=== PATIENT | male | born 1960 | race African-American/Black ===

== ENCOUNTER 2017-07-10 09:22 | Emergency (ER) | payer OTHER ==
[2017-07-10 09:33] VITALS: TEMP 97.6; BMI 28.2
[2017-07-10] MEDS ORDERED: KETOROLAC TROMETHAMINE 30 MG/1 ML VIAL IVPUSH ONE (09:39)
[2017-07-10] MEDS ORDERED: CYCLOBENZAPRINE HCL 10 MG TABLET (FP) ONE (09:40)
[2017-07-10] MEDS ORDERED: KETOROLAC TROMETHAMINE 30 MG/1 ML VIAL ONE (09:40)
[2017-07-10] MEDS ORDERED: ACETAMINOPHEN INJECTION 100 ML IVPB ONE (09:40)
[2017-07-10] MEDS ORDERED: CYCLOBENZAPRINE HCL 10 MG TABLET (FP) PO ONE (09:40)
[2017-07-10] MEDS ORDERED: ACETAMINOPHEN 1000 MG/100 ML VIAL (NON FORMULARY) IVPB ONE (09:42)
--- NOTE | 2017-07-10 09:49 | PDOC ---
History of Present Illness - History of Present Illness Initial Comments: 07/10/17 09:55 Patient is a 57 M, with PMHx of cervical stenosis with neck and shoulder surgery , diabetes, who presents today with lower back pain. Patient states that he was moving from a sitting to a standing position around 8:30 am and had a sudden onset of excruciating lower back pain. Patient also endorses numbness and tingling radiating down his left leg. Patient states that he normally experiences neuropathy in his hands. He denies nausea, vomiting diarrhea. He denies chest pain, SOB, headache, dizziness. He denies dysuria, or other urinary complaints. He denies lifting heavy objects. <Modesta Hauser - Last Filed: 07/10/17 11:37> - General History Source: Patient Exam Limitations: No Limitations <Valdez Hamilton - Last Filed: 07/10/17 12:24> - General Chief Complaint: Back Pain Stated Complaint: BACK PAIN Time Seen by Provider: 07/10/17 09:38 Past History <Modesta Hauser - Last Filed: 07/10/17 11:37> - Past Medical History COPD: No Diabetes: Yes (NIDDM) - Suicide/Smoking/Psychosocial Hx Smoking History: Never smoked Have you smoked in the past 12 months: No Number of Cigarettes Smoked Daily: 0 Hx Alcohol Use: No Drug/Substance Use Hx: No <Valdez Hamilton - Last Filed: 07/10/17 12:24> - Past Medical History Allergies/Adverse Reactions: Allergies Allergy/AdvReac Type Severity Reaction Status Date / Time No Known Allergies Allergy Verified 07/10/17 09:24 Home Medications: Ambulatory Orders metFORMIN HCL [Glucophage -] 1,000 mg PO BID 04/09/15 Acetaminophen [Tylenol] 650 mg PO Q4H PRN #20 tablet 07/10/17 Cyclobenzaprine HCl [Flexeril 10 mg] 10 mg PO Q8H PRN #21 tablet 07/10/17 Glyburide 0 mg PO BID 07/10/17 Naproxen 500 mg PO BID PRN #20 tablet. 07/10/17 Prednisone [Deltasone] 40 mg PO DAILY #6 tablet 07/10/17 Sitagliptin Phosphate [Januvia] 100 mg PO DAILY 07/10/17 Review of Systems - Review of Systems Comments:: 07/10/17 09:50 GENERAL/CONSTITUTIONAL: No fever or chills. No weakness. HEAD, EYES, EARS, NOSE AND THROAT: No change in vision. No ear pain or discharge. No sore throat. CARDIOVASCULAR: No chest pain or shortness of breath. RESPIRATORY: No cough, wheezing, or hemoptysis. GASTROINTESTINAL: No nausea, vomiting, diarrhea or constipation. GENITOURINARY: No dysuria, frequency, or change in urination. MUSCULOSKELETAL: No joint pain. No neck pain. +Back pain. SKIN: No rash NEUROLOGIC: No headache, vertigo, loss of consciousness. + Numbness and tingling down left leg. ENDOCRINE: No increased thirst. No abnormal weight change. HEMATOLOGIC/LYMPHATIC: No anemia, easy bleeding, or history of blood clots. ALLERGIC/IMMUNOLOGIC: No hives or skin allergy. <Modesta Hauser - Last Filed: 07/10/17 11:37> *Physical Exam - Vital Signs Last Vital Signs Temp Pulse Resp BP Pulse Ox 97.6 F 72 24 143/79 100 07/10/17 09:25 07/10/17 09:25 07/10/17 09:25 07/10/17 09:25 07/10/17 09:25 - Physical Exam Comments: 07/10/17 09:52 GENERAL: Awake, alert, and fully oriented, in no acute distress HEAD: No signs of trauma EYES: PERRLA, EOMI, sclera anicteric, conjunctiva clear NECK: Normal ROM, supple, no lymphadenopathy, JVD, or masses LUNGS: Breath sounds equal, clear to auscultation bilaterally. No wheezes, and no crackles HEART: Regular rate and rhythm, normal S1 and S2, no murmurs, rubs or gallops ABDOMEN: Soft, nontender, normoactive bowel sounds. No guarding, no rebound. No masses BACK: Tenderness to palpation of lumbar spine. No step-offs. EXTREMITIES: Unable to assess straight leg raise. Pain from all movement. no edema. No clubbing or cyanosis. No cords, erythema, or tenderness. Dorsiflexion of great toe b/l. Full strength. NEUROLOGICAL: Cranial nerves II through XII grossly intact. Normal speech. 2+ dp pulse bilaterally. Sensation intact throughout SKIN: Warm, Dry, normal turgor, no rashes or lesions noted. . <Modesta Hauser - Last Filed: 07/10/17 11:37> - Vital Signs Last Vital Signs Temp Pulse Resp BP Pulse Ox 97.6 F 72 24 143/79 100 07/10/17 09:25 07/10/17 09:25 07/10/17 09:25 07/10/17 09:25 07/10/17 09:25 <Valdez Hamilton - Last Filed: 07/10/17 12:24> ED Treatment Course - LABORATORY CBC & Chemistry Diagram: 07/10/17 09:45 07/10/17 09:45 - RADIOLOGY Radiograph Interpretation: 07/10/17 11:37 CT Lumbar Spine Findings: no evidence of compression fracture or listhesis Disc spaces preserved. No significant degenerative changes. No evidence of spinal stenosis. No evidence of focal disc protrusion No evidence of abdominal aortic aneurysm No evidence of renal calculus Impression: negative study Reported by: José Miguel Collins MD 07/10/17 1130 - Medications Given in the ED: ED Medications Discontinued Medications Generic Name Dose Route Start Last Admin Trade Name Luis Fernandoq PRN Reason Stop Dose Admin Acetaminophen 1,000 mg 07/10/17 09:42 07/10/17 09:50 Ofirmev Injection - IVPB 07/10/17 09:43 1,000 mg ONCE ONE Administration Cyclobenzaprine HCl 10 mg 07/10/17 09:40 07/10/17 09:50 Flexeril - PO 07/10/17 09:41 10 mg ONCE ONE Administration Ketorolac Tromethamine 30 mg 07/10/17 09:39 07/10/17 09:50 Toradol Injection - IVPUSH 07/10/17 09:40 30 mg ONCE ONE Administration <Modesta Hauser - Last Filed: 07/10/17 11:37> - LABORATORY CBC & Chemistry Diagram: 07/10/17 09:45 07/10/17 09:45 - RADIOLOGY Radiology Studies Ordered: Category Date Time Status LUMBAR SPINE CT W/O CONTRAST [CT] Stat CT Scan 07/10/17 09:42 Ordered <Valdez Hamilton - Last Filed: 07/10/17 12:24> Medical Decision Making - Medical Decision Making 07/10/17 09:45 A portion of this note was documented by scribe services under my direction. I have reviewed the details of the note, within reason, and agree with the documentation with the following case summary and management plan written by me. Patient treated in the ED. Nursing notes are reviewed and incorporated into the medical decision-making. Vital signs reviewed. Vital Signs Temp Pulse Resp BP Pulse Ox 97.6 F 72 24 143/79 100 07/10/17 09:25 18 09:25 07/10/17 09:25 07/10/17 09:25 07/10/17 09:25 57-year-old male with past medical history of diabetes, cervical spine stenosis presents with lower back pain since approximately 8:00 in the morning. The patient states that he woke up in his usual state of health. Denies lifting any heavy objects or pushing or pulling. While getting ready for christian, the patient started developed sudden onset of lower spinal pain radiating to the lower extremities. Denies any numbness, paresthesias, urinary bowel incontinence. The patient reported that the back pain was so severe that he fell to the ground. Denies head trauma or loss of consciousness. Patient reports that he has had chronic sciatica-like pain for several months. Typically radiates down to left leg with intermittent numbness and paresthesias. States that the quality of pain is similar but the intensity is worse. At this time, less suspicious for cord compression or cauda equina. However, I suspect the patient likely has severe sciatica. We'll attempt to control the pain and obtain a lumbar spine CT. Reassess. 07/10/17 12:18 CBC, BMP 07/10/17 09:45 07/10/17 09:45 CMP Sodium 140 mmol/L (136-145) 07/10/17 09:45 Potassium 4.2 mmol/L (3.5-5.1) 07/10/17 09:45 Chloride 106 mmol/L (98-107) 07/10/17 09:45 Carbon Dioxide 25 mmol/L (21-32) 07/10/17 09:45 Anion Gap 9 (8-16) 07/10/17 09:45 BUN 20 mg/dL (7-18) H 07/10/17 09:45 Creatinine 0.8 mg/dL (0.7-1.3) 07/10/17 09:45 Creat Clearance w eGFR > 60 (>60) 07/10/17 09:45 Random Glucose 79 mg/dL (74-106) 07/10/17 09:45 Calcium 9.2 mg/dL (8.5-10.1) 07/10/17 09:45 Total Bilirubin 0.7 mg/dL (0.2-1.0) 07/10/17 09:45 AST 25 U/L (15-37) 07/10/17 09:45 ALT 39 U/L (12-78) 07/10/17 09:45 Alkaline Phosphatase 68 U/L (45-117) 07/10/17 09:45 Total Protein 8.1 g/dl (6.4-8.2) 07/10/17 09:45 Albumin 4.6 g/dl (3.4-5.0) 07/10/17 09:45 CT scan of lumbar spine reviewed. No acute findings. After toradol, tylenol, flexeril, dexamethasone and lidoderm patch, the patient feels much better. Pt would like to go home. I advised the patient to return to the ER if he has any worsening symptoms. Pt will go home with hi . I discussed the physical exam findings, ancillary test results and final diagnoses with the patient. I answered all of the patient's questions. The patient was satisfied with the care received and felt comfortable with the discharge plan and treatment plan. The patient will call their primary care physician within 24 hours to arrange follow-up and will return to the Emergency Department with any new, persistant or worsening symptoms. <Valdez Hamilton - Last Filed: 07/10/17 12:24> *DC/Admit/Observation/Transfer - Attestations Scribe Attestion: 07/10/17 09:57 Documentation prepared by Modesta Hauser, acting as medical attendant for Valdez Hamilton MD, MD. <Modesta Hauser - Last Filed: 07/10/17 11:37> - Discharge Dispostion Admit: No <Valdez Hamilton - Last Filed: 07/10/17 12:24> Diagnosis at time of Disposition: Sciatica Qualifiers: Laterality: unspecified laterality Qualified Code(s): M54.30 - Sciatica, unspecified side - Discharge Dispostion Disposition: HOME Condition at time of disposition: Improved - Prescriptions Prescriptions: Acetaminophen [Tylenol] 650 mg PO Q4H PRN #20 tablet PRN Reason: Back Pain Cyclobenzaprine HCl [Flexeril 10 mg] 10 mg PO Q8H PRN #21 tablet PRN Reason: Back Spasm Naproxen 500 mg PO BID PRN #20 tablet. PRN Reason: Pain Prednisone [Deltasone] 40 mg PO DAILY #6 tablet - Referrals Referrals: Jo Enamorado MD [Primary Care Provider] - Rudolph Ruelas MD [Staff Physician] - - Patient Instructions Printed Discharge Instructions: DI for Sciatica Additional Instructions: Please continue taking the steroids. Start tomorrow. Take 500 mg naproxen every 12 hours and/or 650 mg tylenol every 4 hours as needed for pain. 10 mg flexeril every 8 hours as needed for muscle spasm. These medications may give you stomach upset, so you may take over the counter tums or take with food. It may take several days before your symptoms improve. Follow up with your doctor. If you start to notice severe numbness, weakness, difficulty controlling your bowels or urine, please return to the ER. - Post Discharge Activity
[2017-07-10 10:01] LABS: BASO % 0.7 % (0-2.0); EOS % 2.1 % (0-4.5); HEMATOCRIT 42.2 % (35.4-49); HEMOGLOBIN 14.2 GM/dL (11.7-16.9); LYMPH % 43.7 % (8-40); MCH 26.1 pg (25.7-33.7); MCHC 33.6 g/dl (32.0-35.9); MEAN CELL VOLUME 77.7 fl (80-96); MEAN PLT VOLUME 9.7 fl (7.5-11.1); NEUT % 48.5 % (42.8-82.8); PLATELET COUNT 221 K/MM3 (134-434); RBC 5.43 M/mm3 (4.00-5.60); WHITE BLOOD COUNT 11.1 K/mm3 (4.0-10.0)
[2017-07-10 10:14] LABS: ALBUMIN 4.6 g/dl (3.4-5.0); ANION GAP 9 (8-16); BILIRUBIN,TOTAL 0.7 mg/dL (0.2-1.0); BLOOD UREA NITROGEN 20 mg/dL (7-18); CALCIUM 9.2 mg/dL (8.5-10.1); CHLORIDE 106 mmol/L (98-107); CO2 25 mmol/L (21-32); CREATININE 0.8 mg/dL (0.7-1.3); GLUCOSE,RANDOM 79 mg/dL (74-106); POTASSIUM 4.2 mmol/L (3.5-5.1); SGOT/AST 25 U/L (15-37); SODIUM 140 mmol/L (136-145); TOT PROT 8.1 g/dl (6.4-8.2)
[2017-07-10 10:21] LABS: ALK PHOS 68 U/L (45-117); SGPT/ALT 39 U/L (12-78)
[2017-07-10] MEDS ORDERED: LIDOCAINE 5% TOPICAL PATCH TP ONE (10:46)
[2017-07-10] MEDS ORDERED: methylPREDNISolone NA SUCC 125 MG/2 ML VIAL IVPB ONE (10:46)
[2017-07-10] MEDS ORDERED: DEXAMETHASONE SOD PHOSPHATE 20 MG/5 ML VIAL IVPB ONE (10:47)
[2017-07-10] MEDS ORDERED: DEXAMETHASONE SOD PHOSPHATE 10 MG/1 ML VIAL ONE (10:56)
[2017-07-10] MEDS ORDERED: LIDOCAINE 5% TOPICAL PATCH ONE (10:56)
[2017-07-10 12:43] VITALS: BP 125/85; PULSE 73
[2017-07-10] MEDS ORDERED: LIDOCAINE PATCH REMOVAL MC SCH (22:00)
== END 2017-07-10 12:44 | disposition home or self-care (01) ==
LOC: JER 09:22
PROC: 3E033NZ Introduction of Analgesics, Hypnotics, Sedatives into Peripheral Vein, Percutaneous Approach (ICD-10-PCS; principal; 2017-07-10)
PROC: 3E0333Z Introduction of Anti-inflammatory into Peripheral Vein, Percutaneous Approach (ICD-10-PCS; 2017-07-10)
PROC: 3E0333Z Introduction of Anti-inflammatory into Peripheral Vein, Percutaneous Approach (ICD-10-PCS; 2017-07-10)
DX: M54.42 Lumbago with sciatica, left side (principal); M48.02 Spinal stenosis, cervical region; E11.9 Type 2 diabetes mellitus without complications; Z79.84 Long term (current) use of oral hypoglycemic drugs
CPT/HCPCS: 36415; 72131-TC; 80053; 85025; 96374; 96375; 99284-25

== ENCOUNTER 2020-08-30 00:22 | Emergency (ER) | payer OTHER ==
[2020-08-30 00:43] VITALS: BP 164/93; PULSE 75; TEMP 97.4; BMI 29.7
[2020-08-30] MEDS ORDERED: DEXAMETHASONE SOD PHOSPHATE 4 MG/1 ML VIAL IM ONE (01:03)
[2020-08-30] MEDS ORDERED: KETOROLAC TROMETHAMINE 30 MG/1 ML VIAL IM ONE (01:03)
[2020-08-30] MEDS ORDERED: KETOROLAC TROMETHAMINE 30 MG/1 ML VIAL ONE (01:08)
[2020-08-30] MEDS ORDERED: DEXAMETHASONE SOD PHOSPHATE 4 MG/1 ML VIAL ONE (01:08)
== END 2020-08-30 02:31 | disposition home or self-care (01) ==
LOC: JER 00:22
PROC: 3E023NZ Introduction of Analgesics, Hypnotics, Sedatives into Muscle, Percutaneous Approach (ICD-10-PCS; principal; 2020-08-30)
PROC: 3E0233Z Introduction of Anti-inflammatory into Muscle, Percutaneous Approach (ICD-10-PCS; 2020-08-30)
DX: M79.605 Pain in left leg (principal)
CPT/HCPCS: 82962; 93005; 93010; 93971-TC; 99284-25